=== PATIENT | female | born 1950 | race African-American/Black ===

== ENCOUNTER → 2019-02-21 | Day surgery (SDC) | payer OTHER | LOC: JRADUS-SUR 08:39 ==

== ENCOUNTER 2024-05-21 14:57 | Emergency (ER) | payer OTHER ==
[2024-05-21 15:04] VITALS: BP 145/81; PULSE 85; RESP 18; TEMP 98.2; BMI 28.1
== END 2024-05-21 17:49 | disposition home or self-care (01) ==
LOC: JER 14:57
DX: S09.90XA Unspecified injury of head, initial encounter (principal); W01.198A Fall on same level from slipping, tripping and stumbling with subsequent striking against other object, initial encounter; Y92.000 Kitchen of unspecified non-institutional (private) residence as the place of occurrence of the external cause
CPT/HCPCS: 70450-TC; 72125-TC; 99284-25